=== PATIENT | male | born 2000 | race Caucasian/White ===

== ENCOUNTER 2023-07-17 14:57 | Emergency (ER) | payer OTHER, SELFPAY ==
[2023-07-17 15:02] VITALS: BP 119/79; PULSE 75; RESP 16; TEMP 36.3; O2SAT 99
--- NOTE | 2023-07-17 15:18 | ED_ITS ---
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 Injury occurred at work Patient denies any LOC or altered mental status. Patient was able to control the bleeding prio r to arrival. Patient states his tetanus is up-to-date Review of Systems Review of Systems: Review of systems unremarkable except per HPI and physical exam Exam Narrative: GENERAL: Well-appearing, well-nourished, no physical limitations, and in no acute distress. HEAD: Normocephalic, atraumatic. EYES: Conjunctivae normal, PERRLA and EOMI. CHEST: Clear to auscultation. No respiratory distress. No wheezes rales or rhonchi. HEART: Regular rate and rhythm. No murmur heard. Normal peripheral pulses. EXTREMITIES: Normal range of motion. No edema. No clubbing or cyanosis SKIN: 1.5 cm linear right-sided scalp laceration NEURO: No focal deficits. Alert and oriented x3. MAEW. CN's II-XI intact bilaterally, normal gait PSYCH: Cooperative. Normal mood and affect. Course Vital Signs Vital signs: Vital Signs Temperature 36.3 C L 07/17/23 15:02 Pulse Rate 75 07/17/23 15:02 Respiratory Rate 16 07/17/23 15:02 Blood Pressure 119/79 07/17/23 15:02 Pulse Oximetry 99 07/17/23 15:02 Temperature 36.3 C L 07/17/23 15:02 Pulse Rate 75 07/17/23 15:02 Respiratory Rate 16 07/17/23 15:02 Blood Pressure 119/79 07/17/23 15:02 Pulse Oximetry 99 07/17/23 15:02 Procedures Laceration Laceration 1: Date: 07/17/23 Time: 15:21 Site: scalp Side (If applicable): right Size (cm): 1.5 Description: linear Depth: simple, single layer Local Anesthetic: none ====== Skin Level ====== Skin layer closed with: el Number of sutures: 3 ====== Subcutaneous Layer ====== ====== Muscle Layer ====== ====== Tendon Layer ====== Discharge Plan Discharge Clinical Impression: Laceration Patient Disposition: Home, Self-Care Condition: Stable Instructions: Antibiotic Form, Laceration (ED) Additional Instructions: Keep wound clean and dry. Monitor for signs of infection which include redness, swelling, tenderness and purulent drainage. El to be removed in 7 days. Return to work forms completed Follow-up/Referrals: PHYSICIAN,MANUFACTURING TECHNOLOGY ANALYST [Primary Care Provider] - Time of Disposition: 15:22
== END 2023-07-17 15:39 | disposition home or self-care (01) ==
LOC: ANHED 15:28
PROVIDERS: Emergency Provider Nurse Practitioner Family
DX: S01.01XA Laceration without foreign body of scalp, initial encounter (principal); W26.8XXA Contact with other sharp object(s), not elsewhere classified, initial encounter
CPT/HCPCS: 12001; 99282